=== PATIENT | male | born 1985 | race Caucasian/White ===

== ENCOUNTER 2023-08-09 05:46 | Emergency (ER) | payer SELFPAY ==
[~2023-08-09] VITALS: Ht 165.1 cm; Wt 70.3 kg
[2023-08-09] MEDS ORDERED: KETOROLAC TROMETHAMINE 15 MG/ML VIAL ONE (06:30)
[2023-08-09] MEDS: IV NS 0.9% 1,000 ML BAG IV ONE (06:42)
[2023-08-09] MEDS: KETOROLAC TROMETHAMINE 15 MG/ML VIAL IV ONE (06:42)
[2023-08-09 07:18] LABS: BASOPHILS % (AUTO) 0.4 % (0.0-2.0); EOSINOPHILS # (AUTO) 0.1 K/uL (0.0-0.7); EOSINOPHILS % (AUTO) 1.2 % (0.0-6.0); HEMATOCRIT 42 % (39-51); HEMOGLOBIN 13.6 g/dL (13.5-17.5); LYMPHOCYTES # (AUTO) 1.6 K/uL (0.8-4.8); LYMPHOCYTES % (AUTO) 18.7 % (20.0-44.0); MEAN CORPUSCULAR HEMOGLOBIN 28 PG (26.0-33.0); MEAN CORPUSCULAR HGB CONC 33 g/dl (31.0-36.0); MEAN CORPUSCULAR VOLUME 86 fL (80-96); MONOCYTES # (AUTO) 0.5 K/uL (0.1-1.30); MONOCYTES % (AUTO) 6.4 % (2.0-12.0); NEUTROPHILS # (AUTO) 6.3 K/uL (1.8-8.9); NEUTROPHILS % (AUTO) 73.3 % (43.0-81.0); PLATELET COUNT (AUTO) 236 K/uL (150-450); RED BLOOD CELL COUNT(AUTO) 4.82 MIL/uL (4.5-6.0); RED CELL DISTRIBUTION WIDTH 13.3 % (11.5-15.0); WHITE BLOOD COUNT (AUTO) 8.6 K/uL (4.3-11.0)
[2023-08-09 07:26] LABS: ALBUMIN 3.7 g/dL (3.4-5.0); BILIRUBIN,DIRECT 0.1 mg/dL (0.0-0.2); BILIRUBIN,TOTAL 0.3 mg/dL (0.2-1.0); POTASSIUM 4.4 mmol/L (3.5-5.1); TOTAL PROTEIN, SERUM 7.3 g/dL (6.4-8.2)
[2023-08-09] MEDS ORDERED: TAMS-12 PO (07:58)
[2023-08-09] MEDS ORDERED: TAMSULOSIN 0.4 MG CAP.SR.24H ONE (08:16)
[2023-08-09] MEDS: TAMSULOSIN 0.4 MG CAP.SR.24H PO ONE (08:21)
[2023-08-09 08:28] VITALS: BP 141/88; TEMP 98.4; O2SAT 100
== END 2023-08-09 08:29 | disposition home or self-care (01) ==
LOC: ER 05:55
DX: N20.0 Calculus of kidney (principal)
CPT/HCPCS: 99285; 74176; 96374; 96361; 85025; 80048; 83690; 80076; 36415; J7030; J1885

== ENCOUNTER 2023-08-29 23:49 | Emergency (ER) | payer SELFPAY ==
[~2023-08-29 23:49] MED LIST: TAMS-12 PO
== END 2023-08-30 03:23 | disposition left against medical advice (07) ==
LOC: ER 23:58
DX: R10.9 Unspecified abdominal pain (principal); Z53.21 Procedure and treatment not carried out due to patient leaving prior to being seen by health care provider